=== PATIENT | male | born 1985 | race Caucasian/White ===

== ENCOUNTER 2018-07-28 17:56 | Emergency (ER) | payer OTHER ==
[2018-07-28] MEDS ORDERED: LIDOCAINE 1% INJ-PF (10 MG/ML) 30 ML SDV INJ ONE (18:31)
--- NOTE | 2018-07-28 18:32 | ER Document Report ---
HPI - HPI Patient complains to provider of: cut under left eye Onset: Just prior to arrival Pain Level: 2 Context: 33 yo male had pry bar slip and hit under left eye. No eyeball injury. no pain in orbital bones. Past Medical History - General Information source: Patient - Social History Smoking Status: Unknown if Ever Smoked Lives with: Family Family History: Reviewed & Not Pertinent - Medical History Medical History: Negative Surgical Hx: Negative Vertical Provider Document - CONSTITUTIONAL Agree With Documented VS: Yes Exam Limitations: No Limitations - INFECTION CONTROL TRAVEL OUTSIDE OF THE [place] IN LAST 30 DAYS: No - HEENT Notes: partial thickness 1.5 cm cut uner left eye, non tender orbit. - NEURO Level of Consciousness: Awake - DERM Integumentary: Laceration - see above Course - Vital Signs Vital signs: Temp Pulse Resp BP Pulse Ox 98.0 F 98 20 117/77 99 07/28/18 18:08 07/28/18 18:08 07/28/18 18:08 07/28/18 18:08 07/28/18 18:08 Procedures - Laceration/Wound Repair Left Face Time completed: 19:26 Wound length (cm): 1.5 Wound's Depth, Shape: Linear, Other - partial thickness Laceration pre-procedure: Sterile drapes applied Anesthetic type: 1% Lidocaine Volume Anesthetic (mLs): 2 Wound explored: Clean Irrigated w/ Saline (mLs): 30 Wound Repaired With: Sutures Suture Size/Type: 6:0, Prolene Number Deep Layer Sutures: 4 Post-procedure wound care: Other - bacitracin Post-procedure NV exam normal: Yes Complications: No Discharge - Discharge Clinical Impression: facial laceration under left eye Condition: Good Disposition: HOME, SELF-CARE Instructions: Antibiotic Ointment Protection ([facility]), Laceration Care ([facility]) Additional Instructions: Bacitracin Sutures out in 5 days Referrals: PHIL DAMIAN PA-C [Primary Care Provider] - Follow up as needed
[2018-07-28 19:36] VITALS: BP 117/80
== END 2018-07-28 19:33 | disposition home or self-care (01) ==
LOC: ER 17:56
DX: S01.112A Laceration without foreign body of left eyelid and periocular area, initial encounter (principal); W22.8XXA Striking against or struck by other objects, initial encounter; Y93.89 Activity, other specified
CPT/HCPCS: 99282; 12051; J3490